=== PATIENT | male | born 1985 | race Caucasian/White ===

== ENCOUNTER → 2018-03-14 | Outpatient (CLI) | payer BC ==
--- NOTE | 2018-03-14 10:02 | RAD ---
EXAM DESCRIPTION: Foot,Left 3 Views CLINICAL HISTORY: PAIN IN LEFT FOOT COMPARISON: None IMPRESSION: 3 views of the left foot show no evidence of acute fracture, focal bone destruction, or joint dislocation. Soft tissues are unremarkable. Small plantar enthesophyte of the calcaneus is seen. Electronically signed by: Austen Higgins MD 03/14/2018 10:00 AM CDT
== END ==
LOC: RAD 09:08
DX: M79.672 Pain in left foot (principal); M77.32 Calcaneal spur, left foot

== ENCOUNTER 2018-11-08 20:42 | Emergency (ER) | payer BC, OTHER ==
[2018-11-08 22:13] VITALS: BP 127/80; TEMP 98.7; O2SAT 99
--- NOTE | 2018-11-08 22:42 | RAD ---
3 VIEWS RIGHT ANKLE RADIOGRAPHIC SERIES. INDICATIONS: Pain post crushing injury. COMPARISONS: No comparisons are available. FINDINGS: Soft tissue swelling without fracture or dislocation. Right tibiotalar joint appears intact. No radiopaque soft tissue foreign bodies or soft tissue gas. IMPRESSION: Soft tissue swelling without underlying fracture or dislocation. Electronically signed by: Td Cameron MD 11/08/2018 10:40 PM CDT
--- NOTE | 2018-11-08 22:46 | RAD ---
3 VIEWS RIGHT FOOT RADIOGRAPHIC SERIES. INDICATIONS: Pain post crushing injury. COMPARISONS: No comparisons are available. FINDINGS: Soft tissue swelling without fracture or dislocation. No radiopaque soft tissue foreign bodies or soft tissue gas. Suspect right tibiotalar joint effusion. IMPRESSION: Soft tissue swelling without fracture, dislocation or radiopaque soft tissue foreign body. Electronically signed by: Td Cameron MD 11/08/2018 10:44 PM CDT
--- NOTE | 2018-11-08 23:32 | ED.PDOC ---
History of Present Illness - General Chief Complaint: Lower Extremity Injury Stated Complaint: right ankle injury at work Time Seen by Provider: 11/08/18 23:14 Source: patient Exam Limitations: no limitations - History of Present Illness Initial Comments: BOX FELL ONTO PT'S ANKLE. RIGHT, LATERAL MALEOLUS. [employer]. Occurred: this evening Pain - Lower Extremity: moderate: Right Ankle Improving Factors: nothing Worsening Factors: movement, other - AMBULATION Allergies/Adverse Reactions: Allergies NO KNOWN ALLERGY Allergy (Verified 11/08/18 22:14) Home Medications: Ambulatory Orders Indomethacin 50 mg PO TID PRN #14 cap 11/08/18 Review of Systems - Review of Systems Constitutional: States: no symptoms reported Musculoskeletal: States: joint pain, joint swelling. Denies: back pain, neck pain Skin: States: other - SWELLING, NO ECCHYMOSIS Neurological: Denies: numbness, weakness Endocrine: States: no symptoms reported Hematologic/Lymphatic: States: no symptoms reported Past Medical History (General) - Patient Medical History Hx Seizures: No Hx Stroke: No Hx Dementia: No Hx Asthma: No Hx of COPD: No Hx Cardiac Disorders: No Hx Congestive Heart Failure: No Hx Pacemaker: No Hx Hypertension: No Hx Thyroid Disease: No Hx Diabetes: No Hx Gastroesophageal Reflux: No Hx Renal Disease: No Hx Cancer: No Hx of HIV: No Hx Hepatitis C: No Hx MRSA: No Surgical History: no surgical history - Vaccination History Hx Tetanus, Diphtheria Vaccination: Yes - unknown last date Hx Influenza Vaccination: No Hx Pneumococcal Vaccination: No - Social History Hx Tobacco Use: No Hx Chewing Tobacco Use: No Hx Alcohol Use: Yes Hx Substance Use: No Hx Substance Use Treatment: No Hx Depression: No Hx Physical Abuse: No Hx Emotional Abuse: No Hx Suspected Abuse: No - Female History Patient : No Family Medical History - Family History Mother Family History: Unknown Living Status: Still Living Grandparents Living Status: Hx Family Diabetes: Yes Physical Exam - Physical Exam General Appearance: Alert, No apparent distress Eyes, Ears, Nose, Throat: PERRL/EOMI Neck: supple, normal inspection Leg: normal inspection, non-tender Knee: normal inspection, non-tender Ankle: swelling - LATERAL MALEOLUS. NVI, GOOD DISTAL PULSES, NO INSTABILITY, NO BONY DEFORMITY. Foot: normal inspection, non-tender, no evidence of injury Neuro/Tendon: normal sensation, normal motor functions Skin: normal color, other - NO ECCHYMOSIS Progress - EKG/XRAY/CT XRAY: ankle - SOFT TISSUE SWELLING, NO FX Departure - Departure Clinical Impression: Contusion of ankle Qualifiers: Encounter type: initial encounter Laterality: right Qualified Code(s): S90.01XA - Contusion of right ankle, initial encounter Time of Disposition: 23:36 Disposition: Discharge to Home or Self Care Condition: Excellent Departure Forms: ED Discharge - Pt. Copy, Patient Portal Self Enrollment Instructions: Contusion (DC) Prescriptions: Indomethacin 50 mg PO TID PRN #14 cap PRN Reason: Pain Home Medications: Ambulatory Orders Indomethacin 50 mg PO TID PRN #14 cap 11/08/18
== END 2018-11-09 00:40 | disposition home or self-care (01) ==
LOC: ER 20:42
DX: S90.01XA Contusion of right ankle, initial encounter (principal); W20.8XXA Other cause of strike by thrown, projected or falling object, initial encounter; Y99.0 Civilian activity done for income or pay; Y92.69 Other specified industrial and construction area as the place of occurrence of the external cause

== ENCOUNTER 2020-06-01 17:19 | Emergency (ER) | payer BC, OTHER ==
[2020-06-01 17:51] VITALS: TEMP 97.5
--- NOTE | 2020-06-01 19:06 | ED.PDOC ---
History of Present Illness - General Chief Complaint: GI Problem Stated Complaint: headache, nausea, vomiting blood Time Seen by Provider: 06/01/20 17:43 Source: patient Exam Limitations: no limitations - History of Present Illness Initial Comments: The patient is a 34-year-old male presented to the emergency room secondary to waking up this morning with a headache and having 5 or 6 episodes of vomiting. At least a couple of times there was some blood in the vomitus. That was earlier this morning and he has not thrown up since. No fevers. He does have a history of gastritis and some reflux issues. He does eat a lot of spicy food and does take some anti-inflammatories. He denies heavy alcohol use. No significant history of any known GI bleed. He does not appear anemic. Vital signs are stable. No blood in the stools. He is not taking any blood thinners. He is feeling fine at the moment aside from a very mild headache. Timing/Duration: 1/2 hour Severity: moderate Improving Factors: nothing Worsening Factors: nothing Associated Symptoms: headaches, loss of appetite, malaise, nausea/vomiting Allergies/Adverse Reactions: Allergies NO KNOWN ALLERGY Allergy (Verified 06/01/20 17:44) Home Medications: Ambulatory Orders Famotidine 20 mg PO DAILY #90 tab 06/01/20 Sucralfate Tab [Carafate Tab] 1 gm PO QID #120 tab 06/01/20 Review of Systems - Review of Systems Constitutional: States: malaise EENTM: States: no symptoms reported Respiratory: States: no symptoms reported Cardiology: States: no symptoms reported Gastrointestinal/Abdominal: States: nausea, vomiting Genitourinary: States: no symptoms reported Musculoskeletal: States: no symptoms reported Skin: States: no symptoms reported Neurological: States: no symptoms reported Endocrine: States: no symptoms reported All other Systems: No Change from Baseline Past Medical History (General) - Patient Medical History Hx Seizures: No Hx Stroke: No Hx Dementia: No Hx Asthma: No Hx of COPD: No Hx Cardiac Disorders: No Hx Congestive Heart Failure: No Hx Pacemaker: No Hx Hypertension: No Hx Thyroid Disease: No Hx Diabetes: No Hx Gastroesophageal Reflux: No Hx Renal Disease: No Hx Cancer: No Hx of HIV: No Hx Hepatitis C: No Hx MRSA: No Surgical History: no surgical history - Vaccination History Hx Tetanus, Diphtheria Vaccination: Yes - unknown last date Hx Influenza Vaccination: No Hx Pneumococcal Vaccination: No - Social History Hx Tobacco Use: No Hx Chewing Tobacco Use: No Hx Alcohol Use: Yes Hx Substance Use: No Hx Substance Use Treatment: No Hx Depression: No Hx Physical Abuse: No Hx Emotional Abuse: No Hx Suspected Abuse: No - Female History Patient : No Family Medical History - Family History Mother Family History: Unknown Living Status: Still Living Grandparents Family History: No Known Living Status: Hx Family Diabetes: Yes Physical Exam - Physical Exam General Appearance: Alert, Comfortable, No apparent distress Eye Exam: bilateral normal Ears, Nose, Throat: hearing grossly normal, normal pharynx Neck: full range of motion, supple Respiratory: lungs clear, normal breath sounds, no respiratory distress, no accessory muscle use Cardiovascular/Chest: normal peripheral pulses, regular rate, rhythm, no edema Peripheral Pulses: radial,right: 2+, radial,left: 2+ Gastrointestinal/Abdominal: soft, other - Mild epigastric discomfort to palpation Rectal Exam: deferred Back Exam: no CVA tenderness, no vertebral tenderness Extremity: non-tender, normal inspection, no pedal edema, normal capillary refill 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 The patient most likely has a significant gastritis causing this. He has been given dietary precautions which she should follow. He also needs to avoid anti- inflammatories such as aspirin, Aleve or Motrin. Tylenol can be used for headaches. He needs to keep himself well-hydrated. He also needs to avoid caffeine, nicotine, large meals, hot meals or spicy foods. He needs to keep some liquid Maalox with him to use on an as-needed basis. He is going to be written for Carafate for the next month and famotidine for the next 3 months. I do want him to follow back up with his primary care doctor in the coming week for a repeat evaluation. 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 [email or web address] oh [phone] - Results/Orders Results/Orders: 06/01/20 17:59 Abdomen Series [RAD] Stat shows no evidence of acute pathology. See report for details. Laboratory Results - last 24 hr 06/01/20 06/01/20 06/01/20 18:10 18:10 18:10 WBC 5.2 RBC 4.85 Hgb 14.8 Hct 43.4 MCV 89.5 MCH 30.5 MCHC 34.1 RDW 13.2 Plt Count 165 MPV 8.5 Absolute Neuts (auto) 3.30 Absolute Lymphs (auto) 1.30 Absolute Monos (auto) 0.50 Absolute Eos (auto) 0.10 Absolute Basos (auto) 0.00 Neutrophils % 63.8 Lymphocytes % 24.7 Monocytes % 9.8 H Eosinophils % 1.2 Basophils % 0.5 PT 10.7 INR 1.08 PTT (SP) 26.3 Sodium 139 Potassium 4.2 Chloride 105 Carbon Dioxide 27 Anion Gap 11.2 L BUN 25 H Creatinine 0.90 BUN/Creatinine Ratio 27.8 H Random Glucose 106 H Serum Osmolality 282.4 Calcium 8.8 Total Bilirubin 0.5 AST 20 ALT 41 Alkaline Phosphatase 66 Serum Total Protein 7.1 Albumin 4.3 Globulin 2.8 Albumin/Globulin Ratio 1.5 Amylase 115 H Lipase 46 - EKG/XRAY/CT CT Ordered: No CT Interpretation Call Back: No Departure - Departure Clinical Impression: Acute gastritis Qualifiers: Gastritis type: unspecified gastritis Gastritis bleeding: with bleeding Qualified Code(s): K29.01 - Acute gastritis with bleeding Disposition: Discharge to Home or Self Care Condition: Fair Departure Forms: ED Discharge - Pt. Copy, Patient Portal Self Enrollment Instructions: Ulcer and Gastritis Diet, Gastritis (DC) Diet: bland diet Activity: increase activity as tolerated Referrals: Zi Seay MD [Primary Care Provider] - 1-2 Weeks Prescriptions: Sucralfate Tab [Carafate Tab] 1 gm PO QID #120 tab Famotidine 20 mg PO DAILY #90 tab Home Medications: Ambulatory Orders Famotidine 20 mg PO DAILY #90 tab 06/01/20 Sucralfate Tab [Carafate Tab] 1 gm PO QID #120 tab 06/01/20 Additional Instructions: The patient is a 34-year-old male presented emergency room secondary to headache and vomiting this morning with some blood in the vomitus. The patient most likely has a significant gastritis causing this. He has been given dietary precautions which she should follow. He also needs to avoid anti- inflammatories such as aspirin, Aleve or Motrin. Tylenol can be used for headaches. He needs to keep himself well-hydrated. He also needs to avoid caffeine, nicotine, large meals, hot meals or spicy foods. He needs to keep some liquid Maalox with him to use on an as-needed basis. He is going to be wri tten for Carafate for the next month and famotidine for the next 3 months. I do want him to follow back up with his primary care doctor in the coming week for a repeat evaluation. 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
--- NOTE | 2020-06-01 19:20 | RAD ---
ABDOMEN SERIES AND CHEST, XR CLINICAL HISTORY: Nausea and vomiting. COMPARISON: [None.] TECHNIQUE: Two views of the abdomen. Single frontal view of the chest FINDINGS: Chest: Heart is normal in size. Normal cardiomediastinal contours. Normal pulmonary vascularity. Clear lungs and pleural spaces. No pneumothorax. Unremarkable bones and soft tissues. Abdomen: Bowel gas pattern throughout the abdomen appears normal. No free air. No pathologic abdominal calcifications. Solid visceral organ shadows appear normal. Unremarkable bony structures. IMPRESSION: 1. Unremarkable chest and abdomen. Electronically signed by: Idania Quiroz DO 06/01/2020 7:[address] [facility]
[2020-06-01 19:22] VITALS: BP 120/81; O2SAT 95
== END 2020-06-01 19:16 | disposition home or self-care (01) ==
LOC: ER 17:19
DX: K29.01 Acute gastritis with bleeding (principal); R51.9 Headache, unspecified